=== PATIENT | male | born 1995 | race Hispanic/Latino ===

== ENCOUNTER → 2019-06-27 | Outpatient (CLI) | payer OTHER ==
--- NOTE | 2019-06-27 17:17 | Diagnostic Imaging Report ---
Renal ultrasound with Doppler examination. History: Hypertension. Comparison: None available. Discussion: Transverse and longitudinal imaging of the kidneys demonstrates normal renal sizes and echogenicity bilaterally with the right kidney measuring 10.7 and the left kidney measuring 11.6 cm in length. The cortical thickness is 2.0 cm on the right and 1.5 cm on the left There is no evidence of hydronephrosis, renal calculus, or solid mass. Interrogation of the proximal and distal renal arteries using grayscale, color Doppler, and spectral wave form analysis was performed. Findings are as follows: Right: Proximal renal artery: Peak systolic velocity = 55.8 cm/sec, RAR (renal artery aortic ratio) = 0.4 Segmental and interlobar renal arteries: Normal appearing waveforms are present. Left: Proximal renal artery: Peak systolic velocity = 48.3 cm/sec, RAR (renal artery aortic ratio) = 0.3 Segmental and interlobar renal arteries: Normal appearing waveforms are present. IMPRESSION: 1. Normal kidneys. 2. No evidence of renal artery stenosis. Signed by: Barry Howe MD on 06/27/2019 5:15 PM
== END ==
LOC: US 15:56
PROVIDERS: ATTEND Internal Medicine
DX: I10 Essential (primary) hypertension (principal); I70.1 Atherosclerosis of renal artery
CPT/HCPCS: 93976